=== PATIENT | male | born 1945 | race Caucasian/White ===

== ENCOUNTER 2017-01-27 10:08 | Day surgery (SDC) | payer OTHER ==
[2017-01-26 14:08] VITALS: BMI 25.7
[~2017-01-27] VITALS: Ht 165.1 cm; Wt 93.3 kg
[2017-01-27] MEDS ORDERED: JANUVIA PO (10:34)
[2017-01-27 10:36] VITALS: Ht 165.1 cm; Wt 93.3 kg
[2017-01-27] MEDS ORDERED: LIDOCAINE 100 MG SYRINGE ONE (11:29)
[2017-01-27] MEDS ORDERED: PROPOFOL 20 ML ONE (11:29)
[2017-01-27] MEDS ORDERED: FENTAnyl 50 MCG/ML VIAL ONE (11:29)
[2017-01-27 11:39] VITALS: BP 153/76; PULSE 57; RESP 19
--- NOTE | 2017-01-27 12:09 | OPPN ---
Date/Time of Note Date/Time of Note DATE: 01/27/17 TIME: 12:08 Operative Report Preoperative Diagnosis Screening colonoscopy Postoperative Diagnosis Small right colon polyp Internal hemorrhoids Operation/Procedure Performed Colonoscopy and biopsy Surgeon see signature line executive assistant None Anesthesia: MAC Estimated blood loss: none Transfusion Required none Specimen Colon polyp Grafts/Implants none Complications none WILLIAM FLORES MD Jan 27, 2017 12:09
[2017-01-27 12:30] VITALS: BP 135/79; RESP 14
--- NOTE | 2017-01-27 13:19 | GILP ---
DATE OF PROCEDURE: NAME OF PROCEDURES: Colonoscopy and biopsy. SURGEON: William Sapp MD PREOPERATIVE DIAGNOSIS: Screening colonoscopy. POSTOPERATIVE DIAGNOSES 1. Colonoscopy all the way to the cecum. 2. Small right colon polyp was removed using the biopsy forceps. 3. Internal hemorrhoids. INDICATION FOR THE PROCEDURE: Mr. Finch is a 71-year-old male patient who was scheduled for screenin g colonoscopy. The procedure and possible complications are well explained to the patient. He understood and conse nted to the procedure. DESCRIPTION OF PROCEDURE: Under the influence of anesthesia, the colonoscope was carefully introduc ed in the rectum and under direct vision, it was advanced all the way to the cecum. FINDINGS: The patient had a small right colon polyp and it was removed using the biopsy forceps. H e had internal hemorrhoids. He tolerated the procedure very well and there was no complication from the procedure. At the end o f the procedure, he was awake with stable vital signs and he was discharged home to the care of his family. IMPRESSION: 1. Colonoscopy all the way to the cecum. 2. Right colon polyp was removed using the biopsy forceps. 3. Internal hemorrhoids. PLAN: Next screening colonoscopy in 5 years. Dictated By: WILLIAM IBARRA/KAYLA Conf#: [id number] DID#: [id number]
== END 2017-01-27 13:51 | disposition home or self-care (01) ==
LOC: GIL 10:08
PROVIDERS: ATTEND Internal Medicine Gastroenterology
DX: Z12.11 Encounter for screening for malignant neoplasm of colon (principal); K64.8 Other hemorrhoids; E11.9 Type 2 diabetes mellitus without complications; D12.2 Benign neoplasm of ascending colon
CPT/HCPCS: 45380; 82962; 88305; J2001; J3010